=== PATIENT | female | born 1995 | race Caucasian/White ===

== ENCOUNTER 2020-06-02 00:50 | Emergency (ER) | payer BC, MEDICAID ==
[2020-06-02] MEDS ORDERED: Sodium Chloride 0.9% 1000 ML 1,000 ML IV STA (01:01)
[2020-06-02] MEDS ORDERED: Zofran 4 MG/2 ML VIAL IV ONE (01:01)
[2020-06-02] MEDS ORDERED: Ativan 2 MG/1 ML VIAL IV ONE ×2 (01:02→01:59)
--- NOTE | 2020-06-02 01:09 | ERPHSYRPT ---
- History of Present Illness Time Seen by Provider: 06/02/20 01:01 Source: patient Exam Limitations: no limitations Patient Subjective Stated Complaint: "I took too much meth tonight." Triage Nursing Assessment: Patient presented alert et oriented answering questions appropriately with anxious pressured speech. patient stated, "I ate too much meth. I think I'm going to ." Pupils 7mm sluggish reaction to light. Neck supple non-tender without JVD. Symmetrical chest expansion, lungs clear with adequate airflow. No noted accessory muscle use. Abdomen soft non-distended without palpable hepatosplenomegaly. Bowel sounds present in all quadrants. Gait steady without complications. Physician History: Patient here after doing too much meth. Patient states that she does use meth daily. She states that tonight she swallowed meth. Approximately 9:30 PM. Approximately prior to arrival. She feels that her heart is racing. She is having chest palpitations. No fever, no chills some nausea no vomiting. Location: chest, generalized Quality: Palpitations, drug sensation Radiation: None Severity: moderate Duration: tonight Timing: after meth use Modifying factors/associated signs and symptoms: meth use, none tried Allergies/Adverse Reactions: No Known Drug Allergies Allergy (Unverified 06/02/20 00:54) Home Medications: No Reportable Medications [No Reported Medications] 06/02/20 [History] Hx Tetanus, Diphtheria Vaccination/Date Given: No Hx Influenza Vaccination/Date Given: No Travel Risk - International Travel Have you traveled outside of the country in past 3 weeks: No - Coronavirus Screening Are you exhibiting any of the following symptoms?: No Close contact with a COVID-19 positive Pt in past 14-21 Days: No - Review of Systems Constitutional: Malaise, Other, No Fever, No Chills Eyes: No Symptoms Ears, Nose, & Throat: No Symptoms Respiratory: No Cough, No Dyspnea Cardiac: Palpitations, No Chest Pain, No Edema, No Syncope Abdominal/Gastrointestinal: No Abdominal Pain, No Nausea, No Vomiting, No Diarrhea Genitourinary Symptoms: No Dysuria Musculoskeletal: No Back Pain, No Neck Pain Skin: No Rash Neurological: No Dizziness, No Focal Weakness, No Sensory Changes Psychological: No Symptoms Endocrine: No Symptoms All Other Systems: Reviewed and Negative - Past Medical History Pertinent Past Medical History: No - Past Surgical History Past Surgical History: Yes - Social History Smoking Status: Current every day smoker Exposure to second hand smoke: No Drug Use: methamphetamines Patient Lives Alone: No - Female History Hx Now: No - Nursing Vital Signs Nursing Vital Signs: Initial Vital Signs Temperature 98.3 F 06/02/20 00:51 Pulse Rate 137 H 06/02/20 00:51 Respiratory Rate 18 06/02/20 00:51 Blood Pressure 159/97 06/02/20 00:51 O2 Sat by Pulse Oximetry 98 06/02/20 00:51 Pain Scale Pain Intensity 0 - Physical Exam General Appearance: no apparent distress, alert Eye Exam: PERRL/EOMI, eyes nml inspection Ears, Nose, Throat Exam: normal ENT inspection, TMs normal, pharynx normal, moist mucous membranes Neck Exam: normal inspection, non-tender, supple, full range of motion Respiratory Exam: normal breath sounds, lungs clear, other (Tachypnea), No respiratory distress Cardiovascular Exam: normal heart sounds, normal peripheral pulses, tachycardia Gastrointestinal/Abdomen Exam: soft, normal bowel sounds, No tenderness, No mass Back Exam: normal inspection, normal range of motion, No CVA tenderness, No vertebral tenderness Extremity Exam: normal inspection, normal range of motion, pelvis stable Neurologic Exam: alert, oriented x 3, cooperative, normal mood/affect, nml cerebellar function, nml station & gait, sensation nml, No motor deficits Skin Exam: normal color, warm, dry, No rash Lymphatic Exam: No adenopathy SpO2: 98 - Course Nursing assessment & vital signs reviewed: Yes EKG Interpreted by Me: Sinus Rhythm Ordered Tests: Active Orders 24 hr Category Date Time Status Organic Preparation Technician STAT Care 06/02/20 01:02 Active Clean Catch Urine Specimen STAT Care 06/02/20 01:01 Active EKG-ER Only STAT Care 06/02/20 01:01 Active EKG-ER Only STAT Care 06/02/20 02:24 Active IV Insertion STAT Care 06/02/20 01:01 Active POCT Glucose Check STAT Care 06/02/20 01:01 Active CHEST 1 VIEW (PORTABLE) Stat Exams 06/02/20 01:10 Taken ACETAMINOPHEN Stat Lab 06/02/20 01:10 Completed CBC W DIFF Stat Lab 06/02/20 01:10 Completed CMP Stat Lab 06/02/20 01:10 Completed CULTURE,URINE Stat Lab 06/02/20 01:20 Received ETHYL ALCOHOL Stat Lab 06/02/20 01:10 Completed HCG,QUALITATIVE URINE Stat Lab 06/02/20 01:20 Completed POCT GLUCOSE Stat Lab 06/02/20 01:10 Completed SALICYLATE Stat Lab 06/02/20 01:10 Completed TROPONIN Q3H Lab 06/02/20 01:10 Completed TROPONIN Q3H Lab 06/02/20 04:15 Ordered TROPONIN Q3H Lab 06/02/20 07:15 Ordered TROPONIN Q3H Lab 06/02/20 10:15 Ordered TROPONIN Q3H Lab 06/02/20 13:15 Ordered UA W/RFX UR CULTURE Stat Lab 06/02/20 01:20 Completed Urine Triage Profile Stat Lab 06/02/20 01:20 Completed Medication Summary Discontinued Medications Generic Name Dose Route Start Last Admin Trade Name Poliq PRN Reason Stop Dose Admin Sodium Chloride 1,000 mls @ 999 mls/hr 06/02/20 01:01 06/02/20 02:17 Sodium Chloride 0.9% 1000 Ml IV 06/02/20 02:01 Infused .Q1H1M STA Infusion Sodium Chloride Confirm 06/02/20 01:15 Sodium Chloride 0.9% 1000 Ml Administered 06/02/20 01:16 Dose 1,000 mls @ ud .ROUTE .STK-MED ONE Lorazepam 2 mg 06/02/20 01:02 06/02/20 01:16 Ativan 2 Mg/1 Ml Vial IV 06/02/20 01:03 2 mg STAT ONE Administration Lorazepam Confirm 06/02/20 01:15 Ativan 2 Mg/1 Ml Vial Administered 06/02/20 01:16 Dose 2 mg .ROUTE .STK-MED ONE Lorazepam 2 mg 06/02/20 01:59 06/02/20 02:04 Ativan 2 Mg/1 Ml Vial IV 06/02/20 02:00 2 mg STAT ONE Administration Lorazepam Confirm 06/02/20 02:02 Ativan 2 Mg/1 Ml Vial Administered 06/02/20 02:03 Dose 2 mg .ROUTE .STK-MED ONE Ondansetron HCl 4 mg 06/02/20 01:01 06/02/20 01:16 Zofran 4 Mg/2 Ml Vial IV 06/02/20 01:02 4 mg STAT ONE Administration Ondansetron HCl Confirm 06/02/20 01:14 Zofran 4 Mg/2 Ml Vial Administered 06/02/20 01:15 Dose 4 mg .ROUTE .STK-MED ONE Lab/Rad Data: Laboratory Result Diagrams 06/02/20 01:10 06/02/20 01:10 Laboratory Results 06/02/20 06/02/20 06/02/20 Range/Units 01:20 01:20 01:20 WBC (4.0-10.5) K/mm3 RBC (4.1-5.4) M/mm3 Hgb (12.0-16.0) gm/dl Hct (35-47) % MCV (78-100) fl MCH (26-32) pg MCHC (32-36) g/dl RDW (11.5-14.0) % Plt Count (150-450) K/mm3 MPV (7.5-11.0) fl Gran % (36.0-66.0) % Eos # (Auto) (0-0.5) Absolute Lymphs (auto) (1.0-4.6) Absolute Monos (auto) (0.0-1.3) Lymphocytes % (24.0-44.0) % Monocytes % (0.0-12.0) % Eosinophils % (0.00-5.0) % Basophils % (0.0-0.4) % Absolute Granulocytes (1.4-6.9) Basophils # (0-0.4) Sodium (137-145) mmol/L Potassium (3.5-5.1) mmol/L Chloride (98-107) mmol/L Carbon Dioxide (22-30) mmol/L Anion Gap (5-15) MEQ/L BUN (7-17) mg/dL Creatinine (0.52-1.04) mg/dL Estimated GFR ML/MIN Glucose (74-106) mg/dL POC Glucometer (74 to 106) mg/dL Calcium (8.4-10.2) mg/dL Total Bilirubin (0.2-1.3) mg/dL AST (14-36) U/L ALT (0-35) U/L Alkaline Phosphatase (38-126) U/L Troponin I (0.000-0.034) ng/mL Serum Total Protein (6.3-8.2) g/dL Albumin (3.5-5.0) g/dL Urine Color YELLOW (YELLOW) Urine Appearance SLIGHTLY CLOUDY (CLEAR) Urine pH 6.0 (5-6) Ur Specific [place] 1.023 (1.005-1.025) Urine Protein 30 (Negative) Urine Ketones NEGATIVE (NEGATIVE) Urine Blood NEGATIVE (0-5) Jason/ul Urine Nitrite POSITIVE (NEGATIVE) Urine Bilirubin NEGATIVE (NEGATIVE) Urine Urobilinogen NEGATIVE (0-1) mg/dL Ur Leukocyte Esterase SMALL (NEGATIVE) Urine WBC (Auto) 6-10 (0-5) /HPF Urine RBC (Auto) 6-10 (0-2) /HPF U Epithel Cells (Auto) RARE (FEW) /HPF Urine Bacteria (Auto) FEW (NEGATIVE) /HPF Urine Mucus (Auto) MANY (NEGATIVE) /HPF Urine Culture Reflexed YES (NO) Urine Glucose NEGATIVE (NEGATIVE) mg/dL Urine HCG, Qual NEGATIVE (Negative) Salicylates (2-20) mg/dL Urine Opiates Level NEGATIVE (NEGATIVE) Ur Methadone NEGATIVE (NEGATIVE) Acetaminophen (10-30) ug/ml Urine Barbiturates NEGATIVE (NEGATIVE) Ur Phencyclidine (PCP) NEGATIVE (NEGATIVE) Urine Amphetamine POSITIVE (NEGATIVE) U Benzodiazepine Level NEGATIVE (NEGATIVE) Urine Cocaine NEGATIVE (NEGATIVE) Urine Marijuana (THC) NEGATIVE (NEGATIVE) Ethyl Alcohol (0-10) mg/dL 06/02/20 06/02/20 06/02/20 Range/Units 01:10 01:10 01:10 WBC (4.0-10.5) K/mm3 RBC (4.1-5.4) M/mm3 Hgb (12.0-16.0) gm/dl Hct (35-47) % MCV (78-100) fl MCH (26-32) pg MCHC (32-36) g/dl RDW (11.5-14.0) % Plt Count (150-450) K/mm3 MPV (7.5-11.0) fl Gran % (36.0-66.0) % Eos # (Auto) (0-0.5) Absolute Lymphs (auto) (1.0-4.6) Absolute Monos (auto) (0.0-1.3) Lymphocytes % (24.0-44.0) % Monocytes % (0.0-12.0) % Eosinophils % (0.00-5.0) % Basophils % (0.0-0.4) % Absolute Granulocytes (1.4-6.9) Basophils # (0-0.4) Sodium 140 (137-145) mmol/L Potassium 3.6 (3.5-5.1) mmol/L Chloride 105 (98-107) mmol/L Carbon Dioxide 25 (22-30) mmol/L Anion Gap 13.2 (5-15) MEQ/L BUN 15 (7-17) mg/dL Creatinine 0.62 (0.52-1.04) mg/dL Estimated GFR > 60.0 ML/MIN Glucose 113 H (74-106) mg/dL POC Glucometer 97 (74 to 106) mg/dL Calcium 9.7 (8.4-10.2) mg/dL Total Bilirubin 0.30 (0.2-1.3) mg/dL AST 23 (14-36) U/L ALT 17 (0-35) U/L Alkaline Phosphatase 53 (38-126) U/L Troponin I < 0.012 (0.000-0.034) ng/mL Serum Total Protein 7.5 (6.3-8.2) g/dL Albumin 4.7 (3.5-5.0) g/dL Urine Color (YELLOW) Urine Appearance (CLEAR) Urine pH (5-6) Ur Specific [place] (1.005-1.025) Urine Protein (Negative) Urine Ketones (NEGATIVE) Urine Blood (0-5) Jason/ul Urine Nitrite (NEGATIVE) Urine Bilirubin (NEGATIVE) Urine Urobilinogen (0-1) mg/dL Ur Leukocyte Esterase (NEGATIVE) Urine WBC (Auto) (0-5) /HPF Urine RBC (Auto) (0-2) /HPF U Epithel Cells (Auto) (FEW) /HPF Urine Bacteria (Auto) (NEGATIVE) /HPF Urine Mucus (Auto) (NEGATIVE) /HPF Urine Culture Reflexed (NO) Urine Glucose (NEGATIVE) mg/dL Urine HCG, Qual (Negative) Salicylates < 1.0 L (2-20) mg/dL Urine Opiates Level (NEGATIVE) Ur Methadone (NEGATIVE) Acetaminophen < 10 L (10-30) ug/ml Urine Barbiturates (NEGATIVE) Ur Phencyclidine (PCP) (NEGATIVE) Urine Amphetamine (NEGATIVE) U Benzodiazepine Level (NEGATIVE) Urine Cocaine (NEGATIVE) Urine Marijuana (THC) (NEGATIVE) Ethyl Alcohol < 10 (0-10) mg/dL 06/02/20 Range/Units 01:10 WBC 9.2 (4.0-10.5) K/mm3 RBC 4.16 (4.1-5.4) M/mm3 Hgb 13.3 (12.0-16.0) gm/dl Hct 40.5 (35-47) % MCV 97.4 (78-100) fl MCH 32.0 (26-32) pg MCHC 32.8 (32-36) g/dl RDW 12.5 (11.5-14.0) % Plt Count 342 (150-450) K/mm3 MPV 10.0 (7.5-11.0) fl Gran % 63.0 (36.0-66.0) % Eos # (Auto) 0.07 (0-0.5) Absolute Lymphs (auto) 2.56 (1.0-4.6) Absolute Monos (auto) 0.73 (0.0-1.3) Lymphocytes % 27.9 (24.0-44.0) % Monocytes % 8.0 (0.0-12.0) % Eosinophils % 0.8 (0.00-5.0) % Basophils % 0.3 (0.0-0.4) % Absolute Granulocytes 5.79 (1.4-6.9) Basophils # 0.03 (0-0.4) Sodium (137-145) mmol/L Potassium (3.5-5.1) mmol/L Chloride (98-107) mmol/L Carbon Dioxide (22-30) mmol/L Anion Gap (5-15) MEQ/L BUN (7-17) mg/dL Creatinine (0.52-1.04) mg/dL Estimated GFR ML/MIN Glucose (74-106) mg/dL POC Glucometer (74 to 106) mg/dL Calcium (8.4-10.2) mg/dL Total Bilirubin (0.2-1.3) mg/dL AST (14-36) U/L ALT (0-35) U/L Alkaline Phosphatase (38-126) U/L Troponin I (0.000-0.034) ng/mL Serum Total Protein (6.3-8.2) g/dL Albumin (3.5-5.0) g/dL Urine Color (YELLOW) Urine Appearance (CLEAR) Urine pH (5-6) Ur Specific [place] (1.005-1.025) Urine Protein (Negative) Urine Ketones (NEGATIVE) Urine Blood (0-5) Jason/ul Urine Nitrite (NEGATIVE) Urine Bilirubin (NEGATIVE) Urine Urobilinogen (0-1) mg/dL Ur Leukocyte Esterase (NEGATIVE) Urine WBC (Auto) (0-5) /HPF Urine RBC (Auto) (0-2) /HPF U Epithel Cells (Auto) (FEW) /HPF Urine Bacteria (Auto) (NEGATIVE) /HPF Urine Mucus (Auto) (NEGATIVE) /HPF Urine Culture Reflexed (NO) Urine Glucose (NEGATIVE) mg/dL Urine HCG, Qual (Negative) Salicylates (2-20) mg/dL Urine Opiates Level (NEGATIVE) Ur Methadone (NEGATIVE) Acetaminophen (10-30) ug/ml Urine Barbiturates (NEGATIVE) Ur Phencyclidine (PCP) (NEGATIVE) Urine Amphetamine (NEGATIVE) U Benzodiazepine Level (NEGATIVE) Urine Cocaine (NEGATIVE) Urine Marijuana (THC) (NEGATIVE) Ethyl Alcohol (0-10) mg/dL - Progress Progress: improved Progress Note: 06/02/20 01:12 We will obtain basic labs, fluids, EKG, Ativan. We will screen the patient for basic issues from a drug overdose. Patient overall looks okay at this point time. She is tachycardic and hypertensive as expected with a meth overdose. We will continue to continue to monitor closely in the emergency department. 06/02/20 02:33 Patient's first EKG was done at 1:08 AM. This demonstrated some depression in the lateral inferior leads. Specifically V5 V6 with peaked T waves in V3. Patient initially given 2 mg of Ativan IV. 1 L fluid. She continued to be somewhat tachycardic, therefore we did repeat the Ativan. After second dose of Ativan an EKG was repeated. This demonstrated improvement of ST depression throughout. T waves are now much more rounded. Overall, she looks much improved. She has settled down. She is requesting discharge home at this point time. Patient has no elevation of her troponin. Therefore this is most likely just ST depression from demand tachycardia in the setting of drug use. I do believe the 4 mg of Ativan has improved her and will continue to improve her. She is satting 100% she has not lethargic, hypoxic after the Ativan. We did monitor her here closely for an extended period of time after the Ativan. At this point in time, she is requesting discharge home. I did discuss the dangers of drug use and misuse with the patient. Patient states that she will no longer smoke or ingest meth. Plan of care was discussed with patient and all questions answered. The patient is agreeable to be discharged home and both verbal and printed discharge instructions were provided.The patient agreed to seek outpatient follow up as discussed. The patient was given strict instructions to return to the emergency department for worsening symptoms or any other emergent concerns. The patient verbalized understanding. Counseled pt/family regarding: drug and/or alcohol abuse, lab results, diagnosis, need for follow-up, smoking cessation - Departure Departure Disposition: Home Clinical Impression: Methamphetamine abuse, Sinus tachycardia Condition: Stable Critical Care Time: No Referrals: KANNAN PYLE [Primary Care Provider] - Instructions: Drug Abuse Treatment
[2020-06-02] MEDS ORDERED: Zofran 4 MG/2 ML VIAL ONE (01:14)
[2020-06-02] MEDS ORDERED: Sodium Chloride 0.9% 1000 ML 1,000 ML ONE (01:15)
[2020-06-02] MEDS ORDERED: Ativan 2 MG/1 ML VIAL ONE ×2 (01:15→02:02)
[2020-06-02 01:25] LABS: Absolute Neutrophil Ct (ANC) 5.79 (1.4-6.9); BASOPHIL % 0.3 % (0.0-0.4); Basophil (Absolute #) 0.03 (0-0.4); Eosinophil % 0.8 % (0.00-5.0); Eosinophil (Absolute #) 0.07 (0-0.5); Hematocrit 40.5 % (35-47); Hemoglobin 13.3 gm/dl (12.0-16.0); Lymphocyte (Absolute #) 2.56 (1.0-4.6); Lymphocytes % 27.9 % (24.0-44.0); Mean Cell Volume 97.4 fl (78-100); Mean Corpuscular Hgb Concent. 32.8 g/dl (32-36); Monocyte (Absolute #) 0.73 (0.0-1.3); Platelet Count 342 K/mm3 (150-450); Red Blood Count 4.16 M/mm3 (4.1-5.4); Red Cell Distribution Width 12.5 % (11.5-14.0); White Blood Count 9.2 K/mm3 (4.0-10.5)
[2020-06-02 01:32] LABS: Appearance SLIGHTLY CLOUDY (CLEAR); Bacteria FEW /HPF (NEGATIVE); Bilirubin NEGATIVE (NEGATIVE); Blood NEGATIVE Ery/ul (0-5); Epithelial Cells RARE /HPF (FEW); Glucose NEGATIVE (NEGATIVE); Ketones NEGATIVE (NEGATIVE); Leukocyte Esterase SMALL (NEGATIVE); Mucus MANY /HPF (NEGATIVE); Nitrite POSITIVE (NEGATIVE); Protein,Urine Dip 30 (Negative); Specific Gravity 1.023 (1.005-1.025); Urobilinogen NEGATIVE mg/dL (0-1)
[2020-06-02 01:35] LABS: ALBUMIN 4.7 g/dL (3.5-5.0); ALKALINE PHOSPHATASE 53 U/L (38-126); ANION GAP 13.2 MEQ/L (5-15); BLOOD UREA NITROGEN 15 mg/dL (7-17); CHLORIDE 105 mmol/L (98-107); Calcium 9.7 mg/dL (8.4-10.2); Carbon Dioxide 25 mmol/L (22-30); Creatinine 1 0.62 mg/dL (0.52-1.04); EST GLOMERULAR FILTRATION RATE > 60.0 ML/MIN; Glucose 113 mg/dL (74-106); Potassium 3.6 mmol/L (3.5-5.1); SGOT/AST 23 U/L (14-36); SGPT/ALT 17 U/L (0-35); SODIUM 140 mmol/L (137-145); Total Protein 7.5 g/dL (6.3-8.2)
[2020-06-02 01:36] LABS: ACETAMINOPHEN < 10 ug/ml (10-30); ETHYL ALCOHOL < 10 mg/dL (0-10); SALICYLATE < 1.0 mg/dL (2-20)
[2020-06-02 01:52] LABS: Barbiturate,Urine NEGATIVE (NEGATIVE); Benzodiazepine,Urine NEGATIVE (NEGATIVE); Cocaine,Urine NEGATIVE (NEGATIVE); Methadone,Urine NEGATIVE (NEGATIVE); Opiate,Urine NEGATIVE (NEGATIVE); PCP,Urine NEGATIVE (NEGATIVE); THC,Urine NEGATIVE (NEGATIVE)
[2020-06-02 01:55] LABS: Amphetamine,Urine POSITIVE (NEGATIVE)
[2020-06-02 02:40] VITALS: BP 126/68; PULSE 133; O2SAT 100
--- NOTE | 2020-06-02 08:05 | XRAY ---
Indication: Chest pain. Comparison: None Portable chest demonstrates normal heart, lungs, and bony thorax with a few incidental tiny calcified granulomas.
== END 2020-06-02 02:49 | disposition home or self-care (01) ==
LOC: ED 00:50
DX: F15.10 Other stimulant abuse, uncomplicated (principal); R00.0 Tachycardia, unspecified
CPT/HCPCS: 36000; 36415; 71045; 80053; 80307; 81001; 82947; 84484; 84703; 85025; 87077; 87086; 87186; 93005; 93041; 96360; 96374; 96375; 96376; 99285; J2060; J2405; G0480